=== PATIENT | female | born 1990 | race American Indian/Alaskan Native ===

== ENCOUNTER 2016-12-02 08:20 | Emergency (ER) | payer MEDICAID ==
[2016-12-02 08:46] VITALS: BP 120/69
[2016-12-02 09:27] LABS: Bilirubin,Urine NEG (Negative); Blood,Urine NEG (Negative); Ketones,Urine NEG (Negative); Leukocyte Esterase,Urine NEG (Negative); Mucus,Urine FEW /HPF; Nitrite,Urine NEG (Negative); Protein,Urine <15 mg/dL mg/dL (Negative); Urobilinogen,Urine < 2.0 mg/dL (<2.0); WBC,Urine < 1.0 /HPF (0.0-6.0)
--- NOTE | 2016-12-02 10:15 | Emergency Department Report ---
ED HPI - General Chief complaint: Back Pain/Injury Stated complaint: POSS PREG/BACK PAIN/NAUSEA/FATIGUE Time Seen by Provider: 12/02/16 09:24 Source: patient Mode of arrival: Ambulatory Limitations: No Limitations - History of Present Illness Initial comments: Patient is a 26-year-old female who presents due to low back pain, nausea vomiting 2 days. Patient states that she has been vomiting on and off for the past 2 days. She denies any vomiting today. Patient also complains of having lower back pain, she complains of mild pelvic pain. Patient states that she feels tired. Patient states that she missed her last menstrual cycle, last menstrual cycle was 10/22/2016. Patient denies any vaginal bleeding, vaginal discharge, dysuria, hematuria or frequency. Patient is A1 L2. Patient has any past medical history and denies any drug allergies. MD Complaint: abdominal pain (left pelvi pain), other (low back pain, nausea, vomiting and diarrhea. ) Onset/Timin -: days(s) Location: pelvis, other (lower back) Radiation: none Severity: mild Severity scale (0 -10): 6 Quality: aching Consistency: intermittent Improves with: none Worsens with: none Associated symptoms: weakness, other (nausea and vomiting) Vaginal bleeding: none :: Yes OB History - Current : no complications OB History - Previous Pregnancies: no complications Last menstrual period: 10/22/16 Pre-eduardo care: none - Related Data : 3 Para: 2 Ab: 1 Home Medications Medication Instructions Recorded Confirmed Last Taken No Known Home Medications [No 12/02/16 12/02/16 Unknown Reported Home Medications] Allergies Allergy/AdvReac Type Severity Reaction Status Date / Time No Known Allergies Allergy Unverified 12/02/16 08:41 ED Review of Systems ROS: Stated complaint: POSS PREG/BACK PAIN/NAUSEA/FATIGUE Other details as noted in HPI Comment: All other systems reviewed and negative Constitutional: no symptoms reported. denies: chills, diaphoresis, fever, malaise, weakness Eyes: denies: eye pain, eye discharge, vision change ENT: denies: ear pain, throat pain, dental pain, hearing loss, epistaxis, congestion Respiratory: no symptoms reported. denies: cough, orthopnea, shortness of breath, SOB with exertion, SOB at rest, stridor, wheezing Cardiovascular: denies: chest pain, palpitations, dyspnea on exertion, orthopnea , edema, syncope Endocrine: no symptoms reported Gastrointestinal: abdominal pain (left pelvic pain), nausea, vomiting. denies: diarrhea, constipation, hematemesis, melena, hematochezia Genitourinary: denies: urgency, dysuria, frequency, hematuria, discharge, abnormal menses, dyspareunia Musculoskeletal: back pain. denies: joint swelling, arthralgia Skin: denies: rash Neurological: denies: headache, weakness, numbness, paresthesias, confusion, abnormal gait, vertigo Psychiatric: denies: anxiety ED Past Medical Hx - Past Medical History Previous Medical History?: No - Surgical History Past Surgical History?: No - Social History Smoking Status: Current Every Day Smoker Substance Use Type: None - Medications Home Medications: Home Medications Medication Instructions Recorded Confirmed Last Taken Type No Known Home Medications [No 12/02/16 12/02/16 Unknown History Reported Home Medications] ED Physical Exam - General Limitations: No Limitations General appearance: alert, in no apparent distress - Head Head exam: Present: atraumatic, normocephalic, normal inspection - Eye Eye exam: Present: normal appearance Pupils: Present: normal accommodation - Neck Neck exam: Present: normal inspection - Respiratory Respiratory exam: Present: normal lung sounds bilaterally. Absent: respiratory distress, wheezes, rales, rhonchi, stridor, chest wall tenderness, accessory muscle use, decreased breath sounds, prolonged expiratory - Cardiovascular Cardiovascular Exam: Present: regular rate, normal rhythm, normal heart sounds - GI/Abdominal GI/Abdominal exam: Present: soft, normal bowel sounds. Absent: distended, tenderness, guarding, rebound, rigid - Extremities Exam Extremities exam: Present: normal inspection, full ROM, normal capillary refill. Absent: tenderness, pedal edema, joint swelling, calf tenderness - Back Exam Back exam: Present: normal inspection, full ROM. Absent: tenderness, CVA tenderness (R), CVA tenderness (L), muscle spasm, paraspinal tenderness, vertebral tenderness, rash noted - Neurological Exam Neurological exam: Present: alert, oriented X3, CN II-XII intact, normal gait, reflexes normal - Psychiatric Psychiatric exam: Present: normal affect, normal mood - Skin Skin exam: Present: warm, dry, intact ED Course Vital Signs 12/02/16 08:43 Temperature 98.7 F Pulse Rate 78 Respiratory 17 Rate Blood Pressure 120/69 O2 Sat by Pulse 100 Oximetry ED Medical Decision Making - Radiology Data Radiology results: report reviewed See medical decision making - Medical Decision Making Patient was in NAD, patient had no abdominal pain or low back pain in the ER. Patient denied any vaginal discharge, vaginal bleeding, dysuria or hematuria. Urine test was positive. [place] [id number]. OB ultrasound: The uterus measures 8 x 6 x 7 cm. An intrauterine gestational sac containing a pole and yolk sac is identified. Heart rate measures 126 bpm. Estimated gestational age of 6 weeks, 5 days. Estimated due date 07/23/17. No subchorionic hemorrhage is detected. The right ovary is unremarkable. The left ovary contains a 2.3 cm corpus luteum cyst. No pelvic fluid collection. Patient will be given information to follow up with an [facility]. Patient was informed that her symptoms are consistent with and was told to follow to return to the ER if she had vaginal bleeding or pelvic cramping. - Differential Diagnosis , threatened miscarriage, UTI Critical care attestation.: If time is entered above; I have spent that time in minutes in the direct care of this critically ill patient, excluding procedure time. ED Disposition Clinical Impression: 6 weeks gestation of Ovarian cyst Qualifiers: Laterality: left Qualified Code(s): N83.202 - Unspecified ovarian cyst, left side Disposition: DISCHARGED TO HOME OR SELFCARE Is pt being admited?: No Does the pt Need Aspirin: No Condition: Good Instructions: (ED), Ovarian Cyst (ED) Additional Instructions: Follow-up with the provided [facility]. Return to the ER for any vaginal bleeding or severe pelvic pain or back pain Referrals: PRIMARY CAREMD [Primary Care Provider] - 3-5 Days [facility] [Provider Group] - 3-5 Days Time of Disposition: 11:12
--- NOTE | 2016-12-02 11:05 | Ultrasound Report ---
ULTRASOUND OB LESS THAN 14 WEEKS FETUS ULTRASOUND OB TRANSVAGINAL HISTORY: Pelvic pain during . TECHNIQUE: Transabdominal and transvaginal ultrasound with color and spectral doppler interrogation. The uterus measures 11 x 6 x 7 cm. An intrauterine gestational sac containing a pole and yolk sac is identified. Heart rate measures 126 beats per minute. Estimated gestational age is 6 weeks, 5 days. Estimated due date 07/23/17. No subchorionic hemorrhage is detected. The right ovary is unremarkable. The left ovary contains a 2.3 cm corpus luteum cyst. No pelvic fluid collection. Color Doppler and spectral Doppler images are unremarkable. IMPRESSION: Viable, single intrauterine . No acute abnormality is appreciated. Corpus luteum cyst.
== END 2016-12-02 11:20 | disposition home or self-care (01) ==
LOC: ED 08:20
DX: O34.81 Maternal care for other abnormalities of pelvic organs, first trimester (principal); N83.202 Unspecified ovarian cyst, left side; F17.200 Nicotine dependence, unspecified, uncomplicated; Z3A.01 Less than 8 weeks gestation of pregnancy
CPT/HCPCS: 36415; 76801; 76817; 81001; 81025; 84702

== ENCOUNTER 2017-04-25 10:35 | Outpatient (CLI) | payer MEDICAID ==
[2017-04-25 13:04] VITALS: BP 125/68
== END 2017-04-25 13:12 | disposition home or self-care (01) ==
LOC: LAB 10:35 → TRG 12:54 → LAB 13:12
PROVIDERS: ATTEND Advanced Practice Midwife
DX: O99.332 Smoking (tobacco) complicating pregnancy, second trimester (principal); O36.0920 Maternal care for other rhesus isoimmunization, second trimester, not applicable or unspecified; Z3A.26 26 weeks gestation of pregnancy
CPT/HCPCS: 86850; 86900; 86901; 96372; J2790

== ENCOUNTER 2017-07-25 07:54 | Inpatient (IN) | payer MEDICAID ==
[2017-07-25] MEDS ORDERED: SUBLIMAZE ONE (08:23)
[2017-07-25] MEDS ORDERED: MINERAL OIL ONE (08:28)
[2017-07-25] MEDS ORDERED: PITOCin/NS 20 UNIT/1000ML DRIP 20 UNITS/1,000 ML BAG IV SCH ×2 (08:30→10:00)
[2017-07-25] MEDS ORDERED: SUBLIMAZE IV NR (08:30)
[2017-07-25] MEDS ORDERED: NARCAN 2 MG/2 ML ONE (08:42)
[2017-07-25] MEDS ORDERED: XYLOCAINE 2% INFILTRATI ONE ×2 (08:53→09:30)
[2017-07-25] MEDS ORDERED: PITOCin/NS 30 UNIT/500ML 30 UNITS/500 ML BAG IV ONE (09:00)
[2017-07-25] MEDS ORDERED: LACTATED RINGERS 1,000 ML IV SCH ×2 (09:00→10:00)
[2017-07-25 09:22] LABS: Hematocrit 38.4 % (30.3-42.9); Mean Corpuscular HGB Conc 34 % (30-34); Mean Corpuscular Hemoglobin 31 pg (28-32); Mean Corpuscular Volume 93 fl (79-97); Platelet Count 377 K/mm3 (140-440); Red Blood Count 4.13 M/mm3 (3.65-5.03); Red Cell Distribution Width 13.7 % (13.2-15.2); White Blood Count 10.8 K/mm3 (4.5-11.0)
[2017-07-25] MEDS ORDERED: ePHEDrine SULFATE IV PRN (09:30)
--- NOTE | 2017-07-25 09:31 | History and Physical Report ---
History of Present Illness Date of examination: 07/25/17 Date of admission: 07/25/17 07:54 Chief complaint: Intense Labor Pains History of present illness: Early entry to care, RH Negative, received Rhogam injection on . course complicated by stress, depression, and cigarette smoking. Past History Past Medical History: no pertinent history Past Surgical History: WELDER SHIELDED METAL ARC/uterine surgery (LEEP) Family/Genetic History: hypertension (Brother, MGM, Mother), other (father with Schizophrenia) Social history: single, smoking (10 cigarettes daily) - Obstetrical History Expected Date of Delivery: 07/23/17 Actual Gestation: 40 Week(s) 2 Day(s) : 4 Para: 2 Induced : 1 Number of Living Children: 2 #2 Gender: Male year: 2,011 Birthweight: 3.345 kg Method of Delivery: Vaginal Gestational age at delivery: 40 Complications: none #1 Infant Gender: Male year: 2,006 Birthweight: 3.232 kg Method of Delivery: Vaginal Gestational age at delivery: 40 Complications: none Medications and Allergies Allergies Allergy/AdvReac Type Severity Reaction Status Date / Time No Known Allergies Allergy Verified 07/25/17 08:19 Home Medications Medication Instructions Recorded Confirmed Last Taken Type No Known Home Medications [No 12/02/16 12/02/16 Unknown History Reported Home Medications] Active Meds: Active Medications Acetaminophen/Hydrocodone Bitart ([place] 5/325) 2 each PO Q6H PRN PRN Reason: Pain, Moderate (4-6) Bisacodyl (Dulcolax) 10 mg MD BID PRN PRN Reason: Constipation Diphenhydramine HCl (Benadryl) 25 mg PO Q6H PRN PRN Reason: Itching Ephedrine Sulfate (Ephedrine Sulfate) 10 mg IV Q2M PRN PRN Reason: Hypotension Stop: 07/25/17 14:30 Fentanyl (Sublimaze) 100 mcg IV ONCE NR Stop: 07/25/17 14:00 Lactated Ringer's (Lactated Ringers) 1,000 mls @ 125 mls/hr IV DIRECT MERCEDES Last Admin: 07/25/17 08:00 Dose: 125 mls/hr Oxytocin/Sodium Chloride (Pitocin/Ns 20 Unit/1000ml Drip) 20 units in 1,000 mls @ 0 mls/hr IV DIRECT MERCEDES PRN Reason: As Directed Oxytocin/Sodium Chloride (Pitocin/Ns 30 Unit/500ml) 30 units in 500 mls @ 1 mls /hr IV DIRECT ONE; 1 MILLIUNITS/MIN PRN Reason: Protocol Stop: 08/15/17 04:59 Lactated Ringer's (Lactated Ringers) 1,000 mls @ 125 mls/hr IV DIRECT MERCEDES Oxytocin/Sodium Chloride (Pitocin/Ns 20 Unit/1000ml Drip) 20 units in 1,000 mls @ 125 mls/hr IV DIRECT MERCEDES Ibuprofen (Motrin) 600 mg PO Q6H MERCEDES Lidocaine (Xylocaine 2%) 20 ml INFILTRATI ONCE ONE Stop: 07/25/17 09:31 Magnesium Hydroxide (Milk Of Magnesia) 30 ml PO HS PRN PRN Reason: Constipation Mineral Oil (Mineral Oil) 30 ml PO QHS PRN PRN Reason: Constipation Multi-Ingredient Ointment (Lansinoh) 1 applic TP PRN PRN PRN Reason: Sore Nipples Multivitamins/Iron/Calcium ( Vitamin) 1 each PO QDAY MERCEDES Promethazine HCl (Phenergan) 25 mg MD Q6H PRN PRN Reason: Nausea And Vomiting Sodium Chloride (Sodium Chloride Flush Syringe 10 Ml) 10 ml IV PRN NR Terbutaline Sulfate (Brethine) 0.25 mg SUB-Q ONCE PRN PRN Reason: Hyperstimulation/Hypertonicity Stop: 07/25/17 10:01 Terbutaline Sulfate (Brethine) 0.25 mg IVP ONCE PRN PRN Reason: Hyperstimulation/Hypertonicity Stop: 07/25/17 10:01 [place]/Glycerin (Tucks Pad) 1 each TP PRN PRN PRN Reason: Hemorrhoid/cleansing/soothing Review of Systems All systems: negative - Vital Signs Vital signs: Vital Signs Pulse BP 100 H 139/83 07/25/17 08:00 07/25/17 08:00 Temp Pulse Resp BP Pulse Ox 89 150/79 07/25/17 09:14 07/25/17 09:14 - Physical Exam Breasts: Positive: normal Cardiovascular: Regular rate Lungs: Positive: Clear to auscultation, Normal air movement Abdomen: Positive: normal appearance, normal bowel sounds Genitourinary (Female): Positive: normal external genitalia, normal perenium Vagina: Positive: normal moisture Uterus: Positive: enlarged Anus/Rectum: Positive: normal perianal skin - Obstetrical FHR: category 1 Uterine Contraction Monitor Mode: External Cervical Dilatation: 9 (Large amount of clear fluid upon AROM at 0828) Cervical Effacement Percentage: 100 station: -2 Uterine Contraction Pattern: Regular Uterine Tone Measurement Phase: Resting Uterine Contraction Intensity: Moderate Results Result Diagrams: 07/25/17 08:00 All other labs normal. Assessment and Plan A: IUP @ 40 2/7 Weeks Category I Tracing Active Labor GBS Negative P: Admit to L&D per routine orders AROM Expect
--- NOTE | 2017-07-25 09:45 | Procedure Note ---
OB Delivery Note - Delivery Date of Delivery: 07/25/17 (0857) Surgeon: ROBERTH SWARTZ Estimated blood loss: 200cc - Vaginal Delivery presentation: vertex Delivery position: OA Intrapartum events: none Delivery induction: none Delivery augmentation: rupture of membranes Delivery monitor: external FHT, external uterine Route of delivery: Delivery placenta: spontaneous Delivery cord: 3 umbilical vessels Episiotomy: midline Delivery laceration: none Delivery repair: vicryl Anesthesia: local Delivery comments: of a live 7'5 female infant over a 1st degree midline episiotomy under IV pain control with Apgars of 8 and 9 at 0857 on 07/25/2017. Infant directly to maternal abd/chest, skin to skin contact. Episiotomy repaired with 3-[address]-1 under local 2% Lidocaine. Spontaneous delivery of placenta complete and intact with Mccabe side presenting at 0903. Fundus is firm and midline located 4 below the U. Lochia is scant. 10U Pitocin given IM due to loss of IV access. Delayed cord clamping and cutting; Cord cut by Father of the Baby. Cord blood collected; Placenta discarded. - A at 1 minute: 8 at 5 minutes: 9 Gender: Female (7'5)
[2017-07-25] MEDS ORDERED: DULCOLAX PR PRN (10:00)
[2017-07-25] MEDS ORDERED: TUCKS PAD TP PRN (10:00)
[2017-07-25] MEDS ORDERED: BENADRYL PO PRN (10:00)
[2017-07-25] MEDS ORDERED: BRETHINE SUB-Q PRN (10:00)
[2017-07-25] MEDS ORDERED: LANSINOH TP PRN (10:00)
[2017-07-25] MEDS ORDERED: PHENERGAN PR PRN (10:00)
[2017-07-25] MEDS ORDERED: SODIUM CHLORIDE FLUSH SYRINGE 10 ML IV PRN (10:00)
[2017-07-25] MEDS ORDERED: PRENATAL VITAMIN PO SCH (10:00)
[2017-07-25] MEDS ORDERED: BRETHINE IVP PRN (10:00)
[2017-07-25] MEDS ORDERED: MINERAL OIL PO PRN (10:00)
[2017-07-25] MEDS: MOTRIN PO SCH ×2 (12:15→18:08)
[2017-07-25] MEDS: NORCO 5/325 PO PRN ×2 (12:30→18:08)
[2017-07-25] MEDS ORDERED: DERMOPLAST TP PRN (17:27)
[2017-07-25 21:41] LABS: Hematocrit 32.2 % (30.3-42.9); Hemoglobin 10.8 gm/dl (10.1-14.3)
[2017-07-25] MEDS ORDERED: MILK OF MAGNESIA PO PRN (22:00)
[2017-07-26] MEDS: MOTRIN PO SCH ×3 (00:14→16:39)
--- NOTE | 2017-07-26 05:55 | Progress Note ---
Assessment and Plan A: PP Day #1 Stable P: Follow Routine Orders D/C Home today per patient request RTO in 6 Weeks Subjective - Subjective Date of service: 07/26/17 Interval history: Early entry to care, RH Negative, received Rhogam injection on . course complicated by stress, depression, and cigarette smoking. Patient reports: appetite normal, voiding normally, pain well controlled, flatus , bowel movement, ambulating normally Richardson: doing well Objective - Vital Signs Latest vital signs: Vital Signs Temp Pulse Resp BP BP Pulse Ox 07/26/17 00:40 98.6 F 77 16 101/76 07/25/17 19:30 98.6 F 66 16 129/77 07/25/17 17:20 98.7 F 88 18 137/71 07/25/17 12:00 98.4 F 78 18 139/77 100 07/25/17 10:54 89 163/77 07/25/17 10:41 84 130/73 07/25/17 10:24 83 145/79 07/25/17 10:08 81 126/71 07/25/17 09:53 77 134/70 07/25/17 09:38 90 133/92 07/25/17 09:14 89 150/79 07/25/17 08:00 100 H 139/83 Intake and Output 07/25/17 07/25/17 07/26/17 14:59 22:59 06:59 Intake Total 360 300 Output Total 100 Balance -100 360 300 Intake: Oral 360 Intake, Free Water 300 Output: Urine 100 Void 100 Other: Total, Intake Amount 360 Total, Output Amount 100 Weight 87.09 kg Estimated Blood Loss 200 Patient Weight 07/26/17 06:59 Weight 87.09 kg - Exam Breasts: Present: normal Cardiovascular: Present: Regular rate Lungs: Present: Clear to auscultation, Normal air movement Abdomen: Present: normal appearance, soft, normal bowel sounds Uterus: Present: normal, firm, fundal height below umbilicus Extremities: Present: normal
--- NOTE | 2017-07-26 05:56 | Discharge Summary ---
Providers - Providers Date of Admission: 07/25/17 07:54 Date of discharge: 07/26/17 Attending physician: MAURA RIOJAS MD Primary care physician: MAURA RIOJAS MD Hospitalization Reason for admission: active labor Delivery: Episiotomy: midline Laceration: none Other procedures: none complications: none Discharge diagnosis: IUP at term delivered [place] baby: female Condition at discharge: Good Disposition: DC-01 TO HOME OR SELFCARE Plan - Provider Discharge Summary Activity: routine, no sex for 6 weeks, no heavy lifting 4 weeks, no strenuous exercise Diet: routine Instructions: routine Additional instructions: [] Smoking cessation referral if applicable(refer to patient education folder for contact #) [] Refer to [facility]'s [facility] Booklet Call your doctor immediately for: * Fever > 100.5 * Heavy vaginal bleeding ( >1 pad per hour) * Severe persistent headache * Shortness of breath * Reddened, hot, painful area to leg or breast * Drainage or odor from incision. * Keep incision clean and dry at all times and follow doctor's instructions regarding bathing/showering - Follow up plan Follow up: MAURA RIOJAS MD [Primary Care Provider] - 6 Weeks
[2017-07-26 17:43] VITALS: BP 144/76
== END 2017-07-26 16:45 | disposition home or self-care (01) | DRG 775 ==
LOC: LD 07:54 → OB 11:50
PROVIDERS: ADMIT Obstetrics & Gynecology; ATTEND Obstetrics & Gynecology
PROC: 10E0XZZ Delivery of Products of Conception, External Approach (ICD-10-PCS; principal; 2017-07-25)
PROC: 0W8NXZZ Division of Female Perineum, External Approach (ICD-10-PCS; 2017-07-25)
DX: O99.334 Smoking (tobacco) complicating childbirth (principal); Z3A.40 40 weeks gestation of pregnancy; Z37.0 Single live birth; F32.9 Major depressive disorder, single episode, unspecified; O99.344 Other mental disorders complicating childbirth
CPT/HCPCS: 36415; 85014; 85018; 85027; 85460; 85461; 86850; 86900; 86901; 99211; A6250; G0463; J2310; J2590; J2790; J3010

== ENCOUNTER 2019-02-12 11:32 | Emergency (ER) | payer MEDICAID ==
[2019-02-12 12:36] VITALS: BP 103/52
--- NOTE | 2019-02-12 12:36 | Emergency Department Report ---
Chief Complaint: Abdominal Pain Stated Complaint: STOMACH/L SIDE PAIN/DIZZINESS Time Seen by Provider: 02/12/19 12:31 - HPI History of Present Illness: pt presents with lower abd pain that began yesterday (+) N/V no diarrhea no fever (+) urinary frequency no vaginal bleeding pt states she was seen by the center on 01/18/19 and had a positive test LNMP 11/20/18 /P:3/A:0 has not been taking vitamin No PMHx +smoker, is still smoking non drinker no drug use MSE screening note: Focused history and physical exam performed. Due to findings the following was ordered: labs, UA ED Disposition for MSE Condition: Stable Instructions: Abdominal Pain (ED)
[2019-02-12 13:14] LABS: Basophils % (Auto) 0.6 % (0.0-1.8); Eosinophils # (Auto) 0.1 K/mm3 (0.0-0.4); Eosinophils % (Auto) 1.1 % (0.0-4.3); Hematocrit 37.9 % (30.3-42.9); Hemoglobin 12.9 gm/dl (10.1-14.3); Lymphocytes # (Auto) 1.4 K/mm3 (1.2-5.4); Mean Corpuscular HGB Conc 34 % (30-34); Mean Corpuscular Volume 93 fl (79-97); Monocytes # (Auto) 0.8 K/mm3 (0.0-0.8); Monocytes % (Auto) 11.9 % (0.0-7.3); Platelet Count 387 K/mm3 (140-440); Red Blood Count 4.08 M/mm3 (3.65-5.03); Red Cell Distribution Width 12.7 % (13.2-15.2)
[2019-02-12 13:28] LABS: Alanine Aminotransferase 9 units/L (7-56); Albumin 3.6 g/dL (3.9-5); BUN/Creatinine Ratio 18; Blood Urea Nitrogen 9 mg/dL (7-17); Calcium 9.1 mg/dL (8.4-10.2); Hemolysis Index 10
[2019-02-12 13:51] LABS: Bilirubin,Urine NEG (Negative); Blood,Urine NEG (Negative); Color,Urine Yellow (Yellow); Mucus,Urine 3+ /HPF; Protein,Urine <15 mg/dL mg/dL (Negative)
== END 2019-02-12 14:50 | disposition left against medical advice (07) ==
LOC: ED 11:32
DX: R42 Dizziness and giddiness (principal); Z53.21 Procedure and treatment not carried out due to patient leaving prior to being seen by health care provider
CPT/HCPCS: 36415; 80053; 81001; 83690; 84702; 85025

== ENCOUNTER 2019-03-24 09:45 | Emergency (ER) | payer MEDICAID ==
[2019-03-24 09:57] VITALS: BP 111/57
[2019-03-24 10:25] LABS: Bacteria,Urine 1+ /HPF (Negative); Bilirubin,Urine NEG (Negative); Blood,Urine NEG (Negative); Color,Urine Yellow (Yellow); Mucus,Urine 1+ /HPF; Protein,Urine <15 mg/dL mg/dL (Negative); Urobilinogen,Urine < 2.0 mg/dL (<2.0)
[2019-03-24] MEDS ORDERED: TYLENOL PO ONE (11:39)
--- NOTE | 2019-03-24 11:44 | Emergency Department Report ---
ED Female HPI - General Chief complaint: Abdominal Pain Stated complaint: LOWER BACK/STOMACH PAIN Time Seen by Provider: 03/24/19 11:30 Source: patient Mode of arrival: Ambulatory Limitations: No Limitations - History of Present Illness Initial comments: 28-year-old -I[place] female reports approximately 17 weeks with no care comes in complaining of back and abdominal pain. Patient denies any vaginal bleeding. Patient is 4 para 3. She reports that she is Rh-. She reports pain as a 9 out of 10. Last menstrual period was 11/18/2018. She reports that the pain is sharp and intermittent. Patient reports that she has tried to get into her own [facility] office but they refused to see her without confirmation. Therefore patient has not had care per patient. MD Complaint: pelvic pain Onset/Timin -: days(s) Severity scale (0 -10): 9 Quality: sharp Consistency: intermittent Improves with: none Worsens with: none Are you Now?: Yes Last Menstrual Period: 12/07/18 EDC: 09/13/19 Associated Symptoms: other (back pain) - Related Data Sexually active: Yes : 4 Para: 3 Previous Rx's Medication Instructions Recorded Last Taken Type Ketorolac [Toradol] 10 mg PO Q6H PRN #15 tablet 08/07/18 Unknown Rx methOCARBAMOL [Robaxin] 750 mg PO Q8H PRN #21 tablet 08/07/18 Unknown Rx traMADol [Ultram] 50 mg PO Q6HR PRN #20 tablet 08/07/18 Unknown Rx Cyclobenzaprine [Flexeril] 10 mg PO TID PRN #12 tablet 02/13/19 Unknown Rx Vit-Fe Fumar-FA [ 1 tab PO QDAY #90 tablet 03/24/19 Unknown Rx Vitamin] Allergies Allergy/AdvReac Type Severity Reaction Status Date / Time No Known Allergies Allergy Verified 02/13/19 09:53 ED Review of Systems ROS: Stated complaint: LOWER BACK/STOMACH PAIN Other details as noted in HPI Comment: All other systems reviewed and negative ED Past Medical Hx - Past Medical History Previous Medical History?: No Hx Hypertension: No Hx Congestive Heart Failure: No Hx Diabetes: No Hx Deep Vein Thrombosis: No Hx Renal Disease: No Hx Sickle Cell Disease: No Hx Seizures: No Hx Asthma: No Hx COPD: No Hx HIV: No - Surgical History Past Surgical History?: No - Social History Smoking Status: Current Every Day Smoker Substance Use Type: None - Medications Home Medications: Home Medications Medication Instructions Recorded Confirmed Last Taken Type Ketorolac [Toradol] 10 mg PO Q6H PRN #15 tablet 08/07/18 Unknown Rx methOCARBAMOL [Robaxin] 750 mg PO Q8H PRN #21 tablet 08/07/18 Unknown Rx traMADol [Ultram] 50 mg PO Q6HR PRN #20 tablet 08/07/18 Unknown Rx Cyclobenzaprine [Flexeril] 10 mg PO TID PRN #12 tablet 02/13/19 Unknown Rx Vit-Fe Fumar-FA [ 1 tab PO QDAY #90 tablet 03/24/19 Unknown Rx Vitamin] ED Physical Exam - General Limitations: No Limitations General appearance: alert, in no apparent distress - Head Head exam: Present: atraumatic, normocephalic - Eye Eye exam: Present: normal appearance - ENT ENT exam: Present: mucous membranes moist - Neck Neck exam: Present: normal inspection, full ROM - Respiratory Respiratory exam: Present: normal lung sounds bilaterally. Absent: respiratory distress - Cardiovascular Cardiovascular Exam: Present: regular rate, normal rhythm. Absent: systolic murmur, diastolic murmur, rubs, gallop - GI/Abdominal GI/Abdominal exam: Present: soft. Absent: distended, tenderness - External exam: Present: normal external exam. Absent: erythema, swelling, lesions Speculum exam: Absent: vaginal discharge, cervical discharge, vaginal bleeding Bi-manual exam: Present: normal bi-manual exam - Extremities Exam Extremities exam: Present: normal inspection, full ROM - Back Exam Back exam: Present: CVA tenderness (R) - Neurological Exam Neurological exam: Present: alert, oriented X3, normal gait - Psychiatric Psychiatric exam: Present: normal affect, normal mood - Skin Skin exam: Present: warm, dry, intact, normal color. Absent: rash ED Course Vital Signs 03/24/19 09:54 Temperature 98.5 F Pulse Rate 94 H Respiratory 19 Rate Blood Pressure 111/57 O2 Sat by Pulse 100 Oximetry ED Medical Decision Making - Radiology Data Radiology results: report reviewed Patient: FADY FRIAS MR#: [id number] : 1990 Acct:[id number] Age/Sex: 28 / F ADM Date: 03/24/19 Loc: ED Attending Dr: Ordering Physician: IAN MACK Date of Service: 03/24/19 Procedure(s): US OB >= 14 weeks Fetus Accession Number(s): [id number] cc: IAN MACK ADDENDUM ADDENDUM: 03/24/2019 at 1116 PT: Zachariah Bowden MD, discussed the findings over the phone with IAN Hopkins. This document is electronically signed by Zachariah Schilling MD., March 24 2019 02:18:45 PM ET Addendum Transcribed By: TYM Addendum Dictated By: ZACHARIAH SCHILLING MD Addendum Electronically Authenticated By: ZACHARIAH SCHILLING MD Addendum Signed Date/Time: 03/24/19 1421 DD/ TD/TT: 03/24/19 PROCEDURE: US OB >= 14 WEEKS FETUS TECHNIQUE: Transvaginal OB ultrasound. HISTORY: 17 weeks preg with abd and back pain COMPARISONS: None currently available. FINDINGS: Single intrauterine dates 16.0 weeks. BRENT equals September 08, 2019. This is 14 days younger compared to the LMP and is borderline discordant. EFW equals 138 g. BPD: 16.1 weeks. HC: 16.2 weeks. AC: 15.6 weeks. FL: 15.6 weeks. CI: 79.6 (74.0-83.0) HC/AC: 1.28 (1.07-1.29) Presentation: Cephalic. Placenta: Posterior. Grade 0. No previa. heart rate: 140 BPM. Amniotic fluid index: Within normal limits. Closed cervix measures 3.3 cm. IMPRESSION: * Single live intrauterine . * Size does not match dates. This document is electronically signed by Zachariah Schilling MD., March 24 2019 02:14:10 PM ET Transcribed By: TYM Dictated By: ZACHARIAH SCHILLING MD Electronically Authenticated By: ZACHARIAH SCHILLING MD Signed Date/Time: 03/24/19 1416 DD/ 1307 TD/TT: 03/24/19 1316 - Medical Decision Making 28-year-old female that is 17 weeks . Patient has no care. Ultrasound shows a patient's approximately 16 weeks . Patient will be referred to [facility]. Patient will be placed on vitamins. Wet prep is negative. GC chlamydia is pending. Critical care attestation.: If time is entered above; I have spent that time in minutes in the direct care of this critically ill patient, excluding procedure time. ED Disposition Clinical Impression: Pelvic pain during , Back pain during Disposition: TO HOME OR SELFCARE Is pt being admited?: No Does the pt Need Aspirin: No Condition: Stable Instructions: Abdominal Pain (ED) Additional Instructions: Please take vitamins as prescribed. It's very important for you to follow-up with an enforcement officer in the next 2-3 days I have listed several below for your convenience. Take Tylenol for pain. Prescriptions: Vit-Fe Fumar-FA [ Vitamin] 1 tab PO QDAY #90 tablet Referrals: [facility] [Provider Group] - 3-5 Days [facility] [Provider Group] - 3-5 Days LUCINA LEMUS MD [Staff Physician] - 3-5 Days Forms: Work/School Release Form(ED)
--- NOTE | 2019-03-24 14:16 | Ultrasound Report ---
PROCEDURE: US OB >= 14 WEEKS FETUS TECHNIQUE: Transvaginal OB ultrasound. HISTORY: 17 weeks preg with abd and back pain COMPARISONS: None currently available. FINDINGS: Single intrauterine dates 16.0 weeks. BRENT equals September 08, 2019. This is 14 days younger compared to the LMP and is borderline discordant. EFW equals 138 g. BPD: 16.1 weeks. HC: 16.2 weeks. AC: 15.6 weeks. FL: 15.6 weeks. CI: 79.6 (74.0-83.0) HC/AC: 1.28 (1.07-1.29) Presentation: Cephalic. Placenta: Posterior. Grade 0. No previa. heart rate: 140 BPM. Amniotic fluid index: Within normal limits. Closed cervix measures 3.3 cm. IMPRESSION: * Single live intrauterine . * Size does not match dates. This document is electronically signed by Zachariah Shaver MD., March 24 2019 02:14:10 PM ET
== END 2019-03-24 15:06 | disposition home or self-care (01) ==
LOC: ED 09:45
DX: O26.892 Other specified pregnancy related conditions, second trimester (principal); R10.2 Pelvic and perineal pain; M54.5 Low back pain; O99.332 Smoking (tobacco) complicating pregnancy, second trimester; Z79.899 Other long term (current) drug therapy; Z3A.16 16 weeks gestation of pregnancy
CPT/HCPCS: 36415; 76805; 81001; 84702; 87210; 87591; 99284

== ENCOUNTER 2019-06-03 11:29 | Emergency (ER) | payer MEDICAID ==
--- NOTE | 2019-06-03 12:04 | Emergency Department Report ---
Chief Complaint: Medical Clearance Stated Complaint: BAILEY INJECTION Time Seen by Provider: 06/03/19 11:51 - HPI History of Present Illness: Pt was sent to Ed for rhogam injection - Exam Vital Signs: Vital Signs 06/03/19 11:51 Temperature 98.6 F Pulse Rate 90 Respiratory 18 Rate Blood Pressure 120/63 O2 Sat by Pulse 100 Oximetry MSE screening note: Focused history and physical exam performed. Due to findings the following was ordered: ED Disposition for MSE Clinical Impression: Need for rhogam due to Rh negative mother Disposition: DC-01 TO HOME OR SELFCARE Condition: Good Instructions: Rho(D) Immune Globulin (Injection) Referrals: ROBERTH SWARTZ CNM [Advanced Practice Nurse] - 3-5 Days
--- NOTE | 2019-06-03 12:43 | Emergency Department Report ---
ED Recheck HPI - General Chief Complaint: Medical Clearance Stated Complaint: BAILEY INJECTION Time Seen by Provider: 06/03/19 11:51 Source: patient Mode of arrival: Ambulatory Limitations: No Limitations - History of Present Illness Initial Comments: sent by Roberth Christiansen at [facility] for Rhogam- 28 weeks, no complaints Complaint: medication refill request -: Gradual Initial Visit For: other Returns Today for: CBOAL Symptoms Since Prior Visit: no new symptoms Context: planned re-check Associated Symptoms: none - Related Data Previous Rx's Medication Instructions Recorded Last Taken Type Ketorolac [Toradol] 10 mg PO Q6H PRN #15 tablet 08/07/18 Unknown Rx methOCARBAMOL [Robaxin] 750 mg PO Q8H PRN #21 tablet 08/07/18 Unknown Rx traMADol [Ultram] 50 mg PO Q6HR PRN #20 tablet 08/07/18 Unknown Rx Cyclobenzaprine [Flexeril] 10 mg PO TID PRN #12 tablet 02/13/19 Unknown Rx Vit-Fe Fumar-FA [ 1 tab PO QDAY #90 tablet 03/24/19 Unknown Rx Vitamin] Allergies Allergy/AdvReac Type Severity Reaction Status Date / Time No Known Allergies Allergy Verified 02/13/19 09:53 ED Review of Systems ROS: Stated complaint: BAILEY INJECTION Other details as noted in HPI Comment: All other systems reviewed and negative ED Past Medical Hx - Past Medical History Previous Medical History?: No Hx Hypertension: No Hx Congestive Heart Failure: No Hx Diabetes: No Hx Deep Vein Thrombosis: No Hx Renal Disease: No Hx Sickle Cell Disease: No Hx Seizures: No Hx Asthma: No Hx COPD: No Hx HIV: No - Surgical History Past Surgical History?: No - Social History Smoking Status: Current Every Day Smoker Substance Use Type: None - Medications Home Medications: Home Medications Medication Instructions Recorded Confirmed Last Taken Type Ketorolac [Toradol] 10 mg PO Q6H PRN #15 tablet 08/07/18 Unknown Rx methOCARBAMOL [Robaxin] 750 mg PO Q8H PRN #21 tablet 08/07/18 Unknown Rx traMADol [Ultram] 50 mg PO Q6HR PRN #20 tablet 08/07/18 Unknown Rx Cyclobenzaprine [Flexeril] 10 mg PO TID PRN #12 tablet 02/13/19 Unknown Rx Vit-Fe Fumar-FA [ 1 tab PO QDAY #90 tablet 03/24/19 Unknown Rx Vitamin] ED Physical Exam - General Limitations: No Limitations General appearance: alert, in no apparent distress - Head Head exam: Present: atraumatic, normocephalic - Eye Eye exam: Present: normal appearance, PERRL - ENT ENT exam: Present: normal exam - Neck Neck exam: Present: normal inspection, full ROM - GI/Abdominal GI/Abdominal exam: Present: other (gravid) - Neurological Exam Neurological exam: Present: alert, oriented X3 - Psychiatric Psychiatric exam: Present: normal affect, normal mood - Skin Skin exam: Present: warm, dry, intact ED Course Vital Signs 06/03/19 11:51 Temperature 98.6 F Pulse Rate 90 Respiratory 18 Rate Blood Pressure 120/63 O2 Sat by Pulse 100 Oximetry ED Recheck MDM - Differential Diagnosis Prescription Refill(s), Recheck of Abnormal Lab, Admission for Abnormal La - Medical Decision Making sent for rhogam RH- no complaints given, fu ob Critical care attestation.: If time is entered above; I have spent that time in minutes in the direct care of this critically ill patient, excluding procedure time. ED Disposition Clinical Impression: Need for rhogam due to Rh negative mother Disposition: DC-01 TO HOME OR SELFCARE Is pt being admited?: No Condition: Good Instructions: Rho(D) Immune Globulin (Injection) Referrals: ROBERTH CHRISTIANSEN CNM [Advanced Practice Nurse] - 3-5 Days Time of Disposition: 12:43
[2019-06-03 14:39] VITALS: BP 122/70
== END 2019-06-03 14:10 | disposition home or self-care (01) ==
LOC: ED 11:29
DX: O36.0131 Maternal care for anti-D [Rh] antibodies, third trimester, fetus 1 (principal); O99.333 Smoking (tobacco) complicating pregnancy, third trimester; Z76.0 Encounter for issue of repeat prescription; Z79.899 Other long term (current) drug therapy; Z3A.28 28 weeks gestation of pregnancy
CPT/HCPCS: 85461; 86850; 86900; 86901; 96372; 99282; J2790

== ENCOUNTER 2019-10-24 09:09 | Emergency (ER) | payer MEDICAID ==
[2019-10-24 09:16] VITALS: BP 134/71
--- NOTE | 2019-10-24 11:56 | Emergency Department Report ---
ED General Adult HPI - General Chief complaint: Medical Clearance Stated complaint: THRUSH Time Seen by Provider: 10/24/19 11:26 Source: patient Mode of arrival: Ambulatory Limitations: No Limitations - History of Present Illness Initial comments: 29-year-old female nursing her one month old now has symptoms of thrush. Mom complaining of cracks in her neck bowls and states that it seems like her nipples also needs to be treated for thrush. Mom Simon denies fever no severe pain to her nipples and no discharge. -: Gradual, days(s) (2 DAYS) Severity scale (0 -10): 0 - Related Data Previous Rx's Medication Instructions Recorded Last Taken Type Ketorolac [Toradol] 10 mg PO Q6H PRN #15 tablet 08/07/18 Unknown Rx methOCARBAMOL [Robaxin] 750 mg PO Q8H PRN #21 tablet 08/07/18 Unknown Rx traMADoL [Ultram] 50 mg PO Q6HR PRN #20 tablet 08/07/18 Unknown Rx Cyclobenzaprine [Flexeril] 10 mg PO TID PRN #12 tablet 02/13/19 Unknown Rx Vit-Fe Fumar-FA [ 1 tab PO QDAY #90 tablet 03/24/19 Unknown Rx Vitamin] Fluconazole [Diflucan TAB] 100 mg PO QDAY #1 tablet 10/24/19 Unknown Rx Allergies Allergy/AdvReac Type Severity Reaction Status Date / Time No Known Allergies Allergy Verified 10/24/19 09:13 ED Review of Systems ROS: Stated complaint: THRUSH Other details as noted in HPI Comment: All other systems reviewed and negative Constitutional: denies: chills, fever ED Past Medical Hx - Past Medical History Hx Hypertension: Yes Hx Congestive Heart Failure: No Hx Diabetes: No Hx Deep Vein Thrombosis: No Hx Renal Disease: No Hx Sickle Cell Disease: No Hx Seizures: No Hx Asthma: No Hx COPD: No Hx HIV: No - Social History Smoking Status: Current Every Day Smoker Substance Use Type: None - Medications Home Medications: Home Medications Medication Instructions Recorded Confirmed Last Taken Type Ketorolac [Toradol] 10 mg PO Q6H PRN #15 tablet 08/07/18 Unknown Rx methOCARBAMOL [Robaxin] 750 mg PO Q8H PRN #21 tablet 08/07/18 Unknown Rx traMADoL [Ultram] 50 mg PO Q6HR PRN #20 tablet 08/07/18 Unknown Rx Cyclobenzaprine [Flexeril] 10 mg PO TID PRN #12 tablet 02/13/19 Unknown Rx Vit-Fe Fumar-FA [ 1 tab PO QDAY #90 tablet 03/24/19 Unknown Rx Vitamin] Fluconazole [Diflucan TAB] 100 mg PO QDAY #1 tablet 10/24/19 Unknown Rx ED Physical Exam - General Limitations: No Limitations General appearance: alert, in no apparent distress - Head Head exam: Present: atraumatic - Eye Eye exam: Present: normal appearance - ENT ENT exam: Present: normal exam - Neck Neck exam: Present: normal inspection - Respiratory Respiratory exam: Present: normal lung sounds bilaterally - Cardiovascular Cardiovascular Exam: Present: regular rate, normal rhythm - Neurological Exam Neurological exam: Present: alert - Psychiatric Psychiatric exam: Present: normal affect - Skin Skin exam: Present: warm, other (nipples with superficial cracks, no redness nontender, no discharge or warmth) ED Course Vital Signs 10/24/19 09:15 Temperature 98.6 F Pulse Rate 88 Respiratory 20 Rate Blood Pressure 134/71 [Left] O2 Sat by Pulse 100 Oximetry ED Medical Decision Making - Medical Decision Making 29-year-old female nursing infant was recently diagnosed with oral thrush. Mom requesting treatment for her candidiasis. She believes affecting her nipples. On examination nipples with 2 superficial cracks. There is no warmth there is no tenderness to no erythema to nipples bilaterally. will give mom one dose of Diflucan. Breast care instructions given and patient instructed to follow up with her PCP and/or [facility] Critical care attestation.: If time is entered above; I have spent that time in minutes in the direct care of this critically ill patient, excluding procedure time. ED Disposition Clinical Impression: Cracked nipple associated with Disposition: DC-01 TO HOME OR SELFCARE Is pt being admited?: No Does the pt Need Aspirin: No Condition: Stable Instructions: Breast Care for the Breast Feeding Mother (ED) Prescriptions: Fluconazole [Diflucan TAB] 100 mg PO QDAY #1 tablet Referrals: PRIMARY CARE, [Primary Care Provider] - 3-5 Days Time of Disposition: 11:54
== END 2019-10-24 12:11 | disposition home or self-care (01) ==
LOC: ED 09:09
DX: O92.13 Cracked nipple associated with lactation (principal); I10 Essential (primary) hypertension; F17.200 Nicotine dependence, unspecified, uncomplicated
CPT/HCPCS: 99282